=== PATIENT | male | born 1970 | race Caucasian/White ===

== ENCOUNTER 2016-08-04 02:46 | Emergency (ER) | payer SELFPAY ==
[~2016-08-04] VITALS: Ht 185.4 cm; Wt 81.8 kg
[~2016-08-04 02:46] MED LIST: NOCURR
[2016-08-04] MEDS ORDERED: PROCHLORPERAZINE EDISYLATE 5 MG/ML 2 ML VIAL IVP ONE (03:15)
[2016-08-04] MEDS ORDERED: SODIUM CHLORIDE 0.9% 1,000 ML IV ONE ×2 (03:15→04:15)
[2016-08-04 03:22] LABS: BASOPHILS # (AUTO) 0.01 K/uL (0.00-0.20); BASOPHILS % (AUTO) 0.1 % (0.0-2.0); EOSINOPHILS # (AUTO) 0.09 K/uL (0.00-0.70); EOSINOPHILS % (AUTO) 0.89 % (1.0-6.0); HEMATOCRIT 47.6 % (41-53); HEMOGLOBIN 15.6 g/dL (13.5-17.5); LYMPHOCYTES # (AUTO) 0.4 K/uL (1.0-4.8); LYMPHOCYTES % (AUTO) 3.9 % (22.0-44.0); MEAN CORPUSCULAR HEMOGLOBIN 28.5 pg (26.0-34.0); MEAN CORPUSCULAR HGB CONC 32.8 G/dL (31.0-37.0); MEAN CORPUSCULAR VOLUME 87 fL (80-100); MONOCYTES # (AUTO) 0.3 K/uL (0.1-1.0); MONOCYTES % (AUTO) 2.6 % (2.0-9.0); NEUTROPHILS # (AUTO) 9.2 K/uL (1.8-7.7); PLATELET COUNT (AUTO) 225 K/uL (150-450); RED BLOOD CELL COUNT(AUTO) 5.49 MIL/uL (4.50-5.90); RED CELL DISTRIBUTION WIDTH 14.6 % (11.5-14.5)
[2016-08-04 03:24] LABS: NEUTROPHILS % (AUTO) 92.6 % (40.0-70.0)
[2016-08-04 03:31] LABS: ANION GAP 6 mmol/L (8-16); CALCIUM, TOTAL 8.7 mg/dL (8.8-10.5); CARBON DIOXIDE 29 mmol/L (22-29); CHLORIDE 104 mmol/L (98-107); CREATININE 1.17 mg/dL (0.60-1.30); GLOMERULAR FILTR. RATE CALC > 60 mL/min (>60); POTASSIUM 4.2 mmol/L (3.5-5.1); SODIUM SERUM 139 mmol/L (136-145); UREA NITROGEN, BLOOD 25 mg/dL (7-18)
[2016-08-04 03:37] LABS: ALANINE AMINOTRANSFERASE 26 U/L (12-78); ASPARTATE AMINOTRANSFERASE 15 U/L (15-37); BILIRUBIN,TOTAL 0.6 mg/dL (0.1-1.0); TOTAL PROTEIN, SERUM 7.8 g/dL (6.4-8.2)
[2016-08-04] MEDS ORDERED: HYDROmorphone 2 MG/ML SYRINGE IVP ONE (04:30)
[2016-08-04] MEDS ORDERED: BARIUM SULFATE 0.1% SUSPENSION 450 ML BOTTLE PO ONE (05:30)
[2016-08-04] MEDS ORDERED: IOVERSOL 350 MG/ML 100 ML VIAL ONE (05:51)
[2016-08-04] MEDS ORDERED: SODIUM CHLORIDE 0.9% 100 ML ONE (05:52)
[2016-08-04 07:15] VITALS: BP 113/68
== END 2016-08-04 07:58 | disposition home or self-care (01) ==
LOC: EMS 02:47
DX: R11.10 Vomiting, unspecified (principal); R10.33 Periumbilical pain
CPT/HCPCS: 36415; 74177; 80053; 83690; 85025; 96361; 96374; 96375; 99285; J0780; J1170; J7030; J7050; Q9967; Z7610

== ENCOUNTER 2016-12-31 06:52 | Emergency (ER) | payer SELFPAY ==
[~2016-12-31] VITALS: Ht 185.4 cm; Wt 81.0 kg
[2016-12-31] MEDS ORDERED: PERTUSS(ACELL),DIPH,TET VAC/PF 0.5 ML VIAL IM ONE (07:15)
[2016-12-31 08:05] VITALS: BP 133/87
== END 2016-12-31 08:05 | disposition home or self-care (01) ==
LOC: EMS 06:53
DX: S61.214A Laceration without foreign body of right ring finger without damage to nail, initial encounter (principal); W25.XXXA Contact with sharp glass, initial encounter; Y93.89 Activity, other specified; Y92.89 Other specified places as the place of occurrence of the external cause; Y99.8 Other external cause status
CPT/HCPCS: 90471; 90715; 99284